=== PATIENT | male | born 1960 | race Caucasian/White ===

== ENCOUNTER 2021-10-14 16:28 | Emergency (ER) | payer SELFPAY ==
[~2021-10-14 16:28] MED LIST: Iopamidol 370 76% 100 ML VIAL ONE
[2021-10-14] MEDS ORDERED: Sodium Chloride 0.9% 1,000 ML ONE ×2 (17:08→18:00)
[2021-10-14 17:24] LABS: ALT (SGPT) 17 U/L (8-55); AST (SGOT) 41 U/L (5-34); Albumin 2.9 g/dL (3.4-4.8); Alkaline Phosphatase 149 U/L (40-110); Anion Gap 21 mmol/L (10-20); BUN (Urea Nitrogen) 20 mg/dL (8.4-25.7); Bilirubin, Total 0.7 mg/dL (0.2-1.2); Calc. Creatinine Clearance 0 mL/min (70-130); Carbon Dioxide 23 mmol/L (23-31); Chloride 97 mmol/L (98-107); Estimated GFR 105; Globulin 5.2 g/dL (2.4-3.5); Glucose 123 mg/dL (80-115); Lipase 20 U/L (8-78); Magnesium 2.2 mg/dL (1.6-2.6); Potassium 4.2 mmol/L (3.5-5.1); Protein, Total 8.1 g/dL (5.8-8.1); Sodium 137 mmol/L (136-145)
[2021-10-14 17:28] LABS: Anisocytosis SLIGHT = 6-15 cells (100X) (0-5/hpf); Band 1 % (5-11); Hemoglobin 9.6 g/dL (14.0-18.0); Hypochromia SLIGHT = 6-15 cells (100X) (0-5/hpf); Lymphocytes 5 % (21-51); MDiff Complete? YES; Mean Corpuscular HGB CONC 27.5 g/dL (32.0-36.0); Mean Corpuscular Hemoglobin 18.7 pg (27.0-31.0); Mean Corpuscular Volume 68.1 fL (78.0-98.0); Mean Platelet Volume 5.1 fL (7.4-10.4); Microcytosis MODERATE=15-30 cells (100X) (0-5/hpf); Monocytes 2 % (0-10); Neutrophil 92 % (42-75); Platelet Count 1110 thou/uL (130-400); Platelet Morphology Comment Appears Increased; Polychromasia MODERATE = 3-4 cells (100X) (0-2/hpf); RBC Distribution Width 15.1 % (11.5-14.5); Reflex for Review?? YES; White Blood Cell (WBC) Count 34.3 thou/uL (4.8-10.8)
[2021-10-14] MEDS ORDERED: Cefepime 2 GM VIAL ONE (18:00)
[2021-10-14] MEDS ORDERED: Sodium Chloride 0.9% 500 ML ONE (18:00)
[2021-10-14] MEDS ORDERED: Sodium Chloride 0.9% 100 ML ONE (18:00)
[2021-10-14 19:03] LABS: SARS-CoV-2 NAA Rapid Test Not Detected (NotDetected)
[2021-10-14 19:47] LABS: INR-International Normal Ratio 1.3; Prothrombin Time 15.8 sec (12.0-14.7)
[2021-10-14 19:48] LABS: PTT 49.6 sec (22.9-36.1)
[2021-10-14 19:56] LABS: Lactic Acid 1.5 mmol/L (0.5-2.2)
[2021-10-14 21:12] LABS: Bilirubin Negative (Negative); Blood, Urine Negative (Negative); Clarity Slightly Cloudy (Clear); Glucose, Urine (Dipstick) Negative (Negative); Ketone, Urine Negative (Negative); Leukocyte Negative (Negative); Nitrite Negative (Negative); Protein, Urine (Dipstick) Negative (Neg-Trace); Specific Gravity, Urine 1.015 (1.005-1.030); pH, Urine 5.5 (5.0-9.0)
== END 2021-10-14 21:07 | disposition short-term general hospital (02) ==
LOC: NAV ERS 16:28
DX: A41.9 Sepsis, unspecified organism (principal); J85.2 Abscess of lung without pneumonia; D64.9 Anemia, unspecified; D72.829 Elevated white blood cell count, unspecified; D75.839 Thrombocytosis, unspecified; R10.11 Right upper quadrant pain; Z20.822 Contact with and (suspected) exposure to COVID-19; Z87.891 Personal history of nicotine dependence
CPT/HCPCS: 71045; 71275; 74177; 80053; 81003; 83605; 83690; 83735; 83880; 84484; 85025; 85060; 85379; 85610; 85730; 87040; 87086; 93005; 94640; 94760; 96361; 96365; 96366; J0692; J3370; J3490; J7030; J7050; J7620; Q9967; U0002

== ENCOUNTER 2022-08-09 11:28 | Outpatient (CLI) | payer MEDICAID | END 2022-08-09 11:29 | disposition home or self-care (01) | LOC: NAV CT 11:28 | PROVIDERS: ATTEND Family Medicine | DX: C34.90 Malignant neoplasm of unspecified part of unspecified bronchus or lung (principal); R04.2 Hemoptysis; A15.0 Tuberculosis of lung | CPT/HCPCS: 71250 ==

== ENCOUNTER 2022-12-05 23:11 | Emergency (ER) | payer OTHER ==
[2022-12-05] MEDS ORDERED: Ipratropium/Albuterol 3 ML NEB ONE (23:31)
[2022-12-05 23:45] LABS: #Basophils 0.2 thou/uL (0.0-0.2); #Eosinphils 2.3 thou/uL (0.0-0.7); #Lymphocytes 2.1 thou/uL (1.20-3.40); #Monocytes 0.7 thou/uL (0.11-0.59); #Neutrophils 7.4 thou/uL (1.40-6.50); %Basophils 1.3 % (0.0-1.0); %Eosinophils 17.9 % (0.0-10.0); %Lymphocytes 16.8 % (21.0-51.0); %Monocytes 5.9 % (0.0-10.0); %Neutrophils 58.2 % (42.0-75.0); Hemoglobin 15.8 g/dL (14.0-18.0); Manual Diff?? NO; Mean Corpuscular HGB CONC 32.2 g/dL (32.0-36.0); Mean Corpuscular Hemoglobin 29.2 pg (27.0-31.0); Mean Corpuscular Volume 90.7 fl (78.0-98.0); Mean Platelet Volume 7.3 fL (7.4-10.4); Platelet Count 246 10x3/uL (130-400); RBC Distribution Width 12.7 % (11.5-14.5); White Blood Cell (WBC) Count 12.7 10x3/uL (4.8-10.8)
[2022-12-06 00:13] LABS: Carbon Dioxide 27 mmol/L (23-31); Chloride 103 mmol/L (98-107); Potassium 4.3 mmol/L (3.5-5.1); Sodium 138 mmol/L (136-145); Troponin I Less than 0.010 ng/mL (< 0.028)
[2022-12-06 00:14] LABS: Albumin 4.5 g/dL (3.4-4.8); Alkaline Phosphatase 96 U/L (40-110); Anion Gap 12 mmol/L (10-20); BUN (Urea Nitrogen) 19 mg/dL (8.4-25.7); Bilirubin, Total 0.6 mg/dL (0.2-1.2); Calc. Creatinine Clearance 0 mL/min (70-130); Calcium 9.7 mg/dL (7.6-10.4); Estimated GFR 91; Globulin 3.4 g/dL (2.4-3.5); Glucose 103 mg/dL (80-115); Protein, Total 7.9 g/dL (5.8-8.1)
[2022-12-06 00:15] LABS: ALT (SGPT) 18 U/L (8-55); AST (SGOT) 20 U/L (5-34)
[2022-12-06] MEDS ORDERED: Simvastatin 10 MG TAB ONE (00:21)
[2022-12-06] MEDS ORDERED: methylPREDNISolone Sod Succ/PF 125 MG/2 ML VIAL ONE ×2 (00:21)
== END 2022-12-06 01:00 | disposition home or self-care (01) ==
LOC: NAV ERS 23:11
DX: J44.1 Chronic obstructive pulmonary disease with (acute) exacerbation (principal); C78.00 Secondary malignant neoplasm of unspecified lung; Z87.891 Personal history of nicotine dependence; Z79.899 Other long term (current) drug therapy
CPT/HCPCS: 71045; 80053; 83880; 84484; 85025; 93005; 94640; 94760; 96374; J2930; J7611; J7620

== ENCOUNTER 2023-01-22 12:52 | Emergency (ER) | payer MEDICAID, OTHER ==
[2023-01-22] MEDS ORDERED: Ipratropium/Albuterol 3 ML NEB ONE ×2 (13:04→13:37)
[2023-01-22 13:14] LABS: #Basophils 0.1 thou/uL (0.0-0.2); #Eosinphils 0.9 thou/uL (0.0-0.7); #Lymphocytes 0.9 thou/uL (1.20-3.40); #Monocytes 0.6 thou/uL (0.11-0.59); #Neutrophils 6.3 thou/uL (1.40-6.50); %Basophils 0.7 % (0.0-1.0); %Eosinophils 10.1 % (0.0-10.0); %Lymphocytes 9.9 % (21.0-51.0); %Monocytes 6.4 % (0.0-10.0); %Neutrophils 72.9 % (42.0-75.0); Hematocrit 47.6 % (42.0-52.0); Hemoglobin 15.4 g/dL (14.0-18.0); Mean Corpuscular HGB CONC 32.4 g/dL (32.0-36.0); Mean Corpuscular Hemoglobin 30.4 pg (27.0-31.0); Mean Platelet Volume 6.8 fL (7.4-10.4); Platelet Count 217 10x3/uL (130-400); RBC Distribution Width 13.3 % (11.5-14.5); Red Blood Cell (RBC) Count 5.07 mill/uL (4.70-6.10); White Blood Cell (WBC) Count 8.6 10x3/uL (4.8-10.8)
[2023-01-22] MEDS ORDERED: methylPREDNISolone Sod Succ/PF 125 MG/2 ML VIAL ONE (13:15)
[2023-01-22 13:32] LABS: Anion Gap 15 mmol/L (10-20); BUN (Urea Nitrogen) 17 mg/dL (8.4-25.7); Calc. Creatinine Clearance 0 mL/min (70-130); Calcium 8.8 mg/dL (7.8-10.44); Carbon Dioxide 24 mmol/L (23-31); Chloride 103 mmol/L (98-107); Estimated GFR 99; Glucose 98 mg/dL (80-115); Potassium 4.2 mmol/L (3.5-5.1); Sodium 138 mmol/L (136-145)
[2023-01-22 13:36] LABS: Troponin I 0.011 ng/mL (< 0.028)
== END 2023-01-22 15:48 | disposition home or self-care (01) ==
LOC: NAV ERS 12:52
DX: J20.9 Acute bronchitis, unspecified (principal); C34.90 Malignant neoplasm of unspecified part of unspecified bronchus or lung; Z87.891 Personal history of nicotine dependence
CPT/HCPCS: 71045; 80048; 83880; 84484; 85025; 93005; 96374; J2930; J7620

== ENCOUNTER 2023-10-23 12:17 | Emergency (ER) | payer OTHER ==
[2023-10-23] MEDS ORDERED: Ipratropium/Albuterol 3 ML NEB ONE (12:33)
[2023-10-23 12:47] LABS: #Basophils 0.1 thou/uL (0.0-0.2); #Eosinphils 1.3 thou/uL (0.0-0.7); #Lymphocytes 1.1 thou/uL (1.20-3.40); #Monocytes 0.5 thou/uL (0.11-0.59); #Neutrophils 5.7 thou/uL (1.40-6.50); %Basophils 1.4 % (0.0-1.0); %Eosinophils 14.7 % (0.0-10.0); %Lymphocytes 12.1 % (21.0-51.0); %Monocytes 5.7 % (0.0-10.0); %Neutrophils 66.2 % (42.0-75.0); Hemoglobin 14.4 g/dL (14.0-18.0); Mean Corpuscular HGB CONC 31.3 g/dL (32.0-36.0); Mean Corpuscular Hemoglobin 26.1 pg (27.0-31.0); Mean Corpuscular Volume 83.6 fl (78.0-98.0); Mean Platelet Volume 6.4 fL (7.4-10.4); Platelet Count 262 10x3/uL (130-400); RBC Distribution Width 13.5 % (11.5-14.5); White Blood Cell (WBC) Count 8.7 10x3/uL (4.8-10.8)
[2023-10-23 13:11] LABS: ALT (SGPT) 20 U/L (8-55); AST (SGOT) 20 U/L (5-34); Albumin 4.1 g/dL (3.4-4.8); Alkaline Phosphatase 89 U/L (40-110); Anion Gap 15 mmol/L (10-20); BUN (Urea Nitrogen) 17 mg/dL (8.4-25.7); Bilirubin, Total 0.5 mg/dL (0.2-1.2); Calc. Creatinine Clearance 0 mL/min (70-130); Calcium 9.5 mg/dL (7.8-10.44); Carbon Dioxide 26 mmol/L (23-31); Chloride 103 mmol/L (98-107); Estimated GFR 93; Globulin 3.3 g/dL (2.4-3.5); Glucose 121 mg/dL (80-115); Potassium 4.3 mmol/L (3.5-5.1); Protein, Total 7.4 g/dL (5.8-8.1); Sodium 140 mmol/L (136-145); Troponin I Less than 0.010 ng/mL (< 0.028)
[2023-10-23] MEDS ORDERED: methylPREDNISolone Sod Succ/PF 125 MG/2 ML VIAL ONE (13:26)
== END 2023-10-23 14:30 | disposition home or self-care (01) ==
LOC: NAV ERS 12:17
DX: J44.1 Chronic obstructive pulmonary disease with (acute) exacerbation (principal); C34.90 Malignant neoplasm of unspecified part of unspecified bronchus or lung; Z87.891 Personal history of nicotine dependence; Z79.899 Other long term (current) drug therapy
CPT/HCPCS: 71046; 80053; 83880; 84484; 85025; 93005; 94760; 96374; J2930; J7620

== ENCOUNTER 2023-12-04 02:29 | Emergency (ER) | payer OTHER ==
[2023-12-04] MEDS ORDERED: Ipratropium/Albuterol 3 ML NEB ONE (02:46)
[2023-12-04 02:48] LABS: #Basophils 0.1 thou/uL (0.0-0.2); #Lymphocytes 1.2 thou/uL (1.20-3.40); #Monocytes 0.6 thou/uL (0.11-0.59); #Neutrophils 12.8 thou/uL (1.40-6.50); %Basophils 0.6 % (0.0-1.0); %Eosinophils 0.2 % (0.0-10.0); %Lymphocytes 8.2 % (21.0-51.0); %Monocytes 3.7 % (0.0-10.0); %Neutrophils 87.4 % (42.0-75.0); Hematocrit 42.3 % (42.0-52.0); Hemoglobin 13.7 g/dL (14.0-18.0); Mean Corpuscular HGB CONC 32.5 g/dL (32.0-36.0); Mean Corpuscular Hemoglobin 26.8 pg (27.0-31.0); Mean Corpuscular Volume 82.5 fl (78.0-98.0); Mean Platelet Volume 6.7 fL (7.4-10.4); Platelet Count 244 10x3/uL (130-400); RBC Distribution Width 14.2 % (11.5-14.5); Red Blood Cell (RBC) Count 5.12 mill/uL (4.70-6.10); White Blood Cell (WBC) Count 14.7 10x3/uL (4.8-10.8)
[2023-12-04 03:02] LABS: ALT (SGPT) 18 U/L (8-55); AST (SGOT) 24 U/L (5-34); Alkaline Phosphatase 72 U/L (40-110); Anion Gap 19 mmol/L (10-20); BUN (Urea Nitrogen) 17 mg/dL (8.4-25.7); Bilirubin, Total 0.7 mg/dL (0.2-1.2); Calc. Creatinine Clearance 0 mL/min (70-130); Calcium 8.7 mg/dL (7.8-10.44); Carbon Dioxide 18 mmol/L (23-31); Chloride 98 mmol/L (98-107); Estimated GFR 100; Globulin 3.7 g/dL (2.4-3.5); Glucose 121 mg/dL (80-115); Potassium 3.7 mmol/L (3.5-5.1); Protein, Total 7.7 g/dL (5.8-8.1); Sodium 131 mmol/L (136-145)
[2023-12-04 03:03] LABS: Troponin I Less than 0.010 ng/mL (< 0.028)
[2023-12-04 03:12] LABS: Base Excess-Venous -3.2 mmol/L (-2.0 to 3.0); Bicarbonate (HCO3v) 22.1 mmol/L (22.0-28.0); CO2 Tension (PvCO2) 39.5 mmHg (42.0-51.0); Chloride 100 mmol/L (98-107); Hemoglobin - Calc 16.1 g/dL (14.0-18.0); Potassium 3.7 mmol/L (3.5-5.1); Sodium 134 mmol/L (138-145); T. Carbon Dioxide 23.3 mmol/L (22.0-28.0); vO2 Saturation-calc 81.7 % (60.0-85.0)
[2023-12-04] MEDS ORDERED: Sodium Chloride 0.9% 1,000 ML ONE (03:23)
[2023-12-04 03:30] LABS: SARS-CoV-2 E Target Negative; SARS-CoV-2 N2 Target Negative; SARS-CoV-2 NAA Rapid Test Not Detected (NotDetected); SARS-CoV-2 RdRP gene Negative
[2023-12-04 06:08] LABS: Troponin I Less than 0.010 ng/mL (< 0.028)
[2023-12-04] MEDS ORDERED: Iopamidol 370 76% 100 ML VIAL ONE (09:00)
== END 2023-12-04 07:50 | disposition home or self-care (01) ==
LOC: NAV ERS 02:29
DX: J44.1 Chronic obstructive pulmonary disease with (acute) exacerbation (principal); R91.8 Other nonspecific abnormal finding of lung field; R03.0 Elevated blood-pressure reading, without diagnosis of hypertension; Z87.891 Personal history of nicotine dependence
CPT/HCPCS: 36415; 71045; 71260; 80053; 82330; 82435; 82803; 83880; 84132; 84295; 84484; 85014; 85025; 85379; 87804; 93005; 94640; 94760; 96360; 96361; J7030; J7620; Q9967; U0002

== ENCOUNTER 2024-01-27 16:47 | Emergency (ER) | payer MEDICARE, MEDICAID ==
[2024-01-27 17:39] LABS: INR-International Normal Ratio 1.3; PTT 37.8 sec (22.9-36.1); Prothrombin Time 15.8 sec (12.0-14.7)
[2024-01-27 17:41] LABS: ALT (SGPT) 13 U/L (8-55); AST (SGOT) 12 U/L (5-34); Albumin 2.7 g/dL (3.4-4.8); Alkaline Phosphatase 120 U/L (40-110); Anion Gap 17 mmol/L (10-20); BUN (Urea Nitrogen) 19 mg/dL (8.4-25.7); Bilirubin, Total 0.7 mg/dL (0.2-1.2); Calc. Creatinine Clearance 0 mL/min (70-130); Calcium 9.7 mg/dL (7.8-10.44); Carbon Dioxide 21 mmol/L (23-31); Chloride 102 mmol/L (98-107); D-Dimer Test 0.66 mcg/mL (0.27-0.43); Estimated GFR 92; Globulin 5.4 g/dL (2.4-3.5); Glucose 143 mg/dL (80-115); Potassium 3.9 mmol/L (3.5-5.1); Protein, Total 8.1 g/dL (5.8-8.1); Sodium 136 mmol/L (136-145)
[2024-01-27 17:52] LABS: Hematocrit 36.9 % (42.0-52.0); Mean Corpuscular HGB CONC 32.6 g/dL (32.0-36.0); Mean Corpuscular Hemoglobin 26.6 pg (27.0-31.0); Mean Corpuscular Volume 81.5 fl (78.0-98.0); Mean Platelet Volume 5.6 fL (7.4-10.4); Platelet Count 717 10x3/uL (130-400); RBC Distribution Width 13.4 % (11.5-14.5); Red Blood Cell (RBC) Count 4.53 mill/uL (4.70-6.10)
[2024-01-27 17:56] LABS: MDiff Complete? YES
[2024-01-27 18:29] LABS: Band 3 % (5-11); Lymphocytes 8 % (21-51); Monocytes 9 % (0-10); Neutrophil 80 % (42-75)
[2024-01-27 18:30] LABS: RBC Morph Comment Within Normal Limits
[2024-01-27 18:31] LABS: Large Platelets SLIGHT (None Seen); Platelet Adequacy Comment Appears Increased
[2024-01-27] MEDS ORDERED: LevoFLOXacin 750 MG TAB ONE (19:27)
== END 2024-01-27 19:40 | disposition home or self-care (01) ==
LOC: NAV ERS 16:47
DX: R04.2 Hemoptysis (principal); J98.4 Other disorders of lung; R91.8 Other nonspecific abnormal finding of lung field; Z87.891 Personal history of nicotine dependence
CPT/HCPCS: 71045; 71275; 80053; 85025; 85379; 85610; 85730; 93005; Q9967

== ENCOUNTER 2024-01-28 18:25 | Emergency (ER) | payer MEDICARE, MEDICAID ==
[2024-01-28 19:17] LABS: #Lymphocytes 0.7 thou/uL (1.20-3.40); #Monocytes 1.3 thou/uL (0.11-0.59); #Neutrophils 21.5 thou/uL (1.40-6.50); %Basophils 0.2 % (0.0-1.0); %Lymphocytes 2.9 % (21.0-51.0); %Monocytes 5.7 % (0.0-10.0); %Neutrophils 91.2 % (42.0-75.0); Hematocrit 33.4 % (42.0-52.0); Hemoglobin 11.2 g/dL (14.0-18.0); Mean Corpuscular HGB CONC 33.6 g/dL (32.0-36.0); Mean Corpuscular Volume 80.3 fl (78.0-98.0); Mean Platelet Volume 5.6 fL (7.4-10.4); Platelet Count 594 10x3/uL (130-400); RBC Distribution Width 13.4 % (11.5-14.5); Red Blood Cell (RBC) Count 4.16 mill/uL (4.70-6.10); White Blood Cell (WBC) Count 23.5 10x3/uL (4.8-10.8)
[2024-01-28 19:30] LABS: ALT (SGPT) 11 U/L (8-55); AST (SGOT) 14 U/L (5-34); Albumin 2.6 g/dL (3.4-4.8); Alkaline Phosphatase 122 U/L (40-110); Anion Gap 17 mmol/L (10-20); BUN (Urea Nitrogen) 26 mg/dL (8.4-25.7); Bilirubin, Total 0.8 mg/dL (0.2-1.2); Calc. Creatinine Clearance 0 mL/min (70-130); Calcium 8.7 mg/dL (7.8-10.44); Carbon Dioxide 22 mmol/L (23-31); Chloride 100 mmol/L (98-107); Estimated GFR 95; Globulin 4.5 g/dL (2.4-3.5); Glucose 150 mg/dL (80-115); Potassium 4.3 mmol/L (3.5-5.1); Protein, Total 7.1 g/dL (5.8-8.1); Sodium 135 mmol/L (136-145)
[2024-01-28 19:32] LABS: Troponin I Less than 0.010 ng/mL (< 0.028)
[2024-01-28] MEDS ORDERED: Sodium Chloride 0.9% 100 ML ONE (19:51)
[2024-01-28] MEDS ORDERED: cefTRIAXone (ROCEPHIN) 2 GM VIAL ONE (19:51)
[2024-01-28] MEDS ORDERED: Acetaminophen 500 MG TAB ONE (20:36)
[2024-01-28] MEDS ORDERED: Sodium Chloride 0.9% 250 ML 250 ML ONE (21:19)
[2024-01-28] MEDS ORDERED: Azithromycin 500 MG VIAL ONE (21:19)
[2024-01-28] MEDS ORDERED: Sodium Chloride 0.9% 1,000 ML ONE (21:19)
== END 2024-01-28 21:50 | disposition short-term general hospital (02) ==
LOC: NAV ERS 18:25
DX: J18.9 Pneumonia, unspecified organism (principal); A41.9 Sepsis, unspecified organism; R04.2 Hemoptysis; J44.9 Chronic obstructive pulmonary disease, unspecified; Z87.891 Personal history of nicotine dependence; Z79.51 Long term (current) use of inhaled steroids; Z79.899 Other long term (current) drug therapy
CPT/HCPCS: 36415; 80053; 83605; 84484; 85025; 87040; 93005; 96365; 96375; J0456; J0696; J7030; J7050